=== PATIENT | female | born 1960 | race African-American/Black ===

== ENCOUNTER 2017-07-31 19:47 | Observation (INO) | payer BC, OTHER ==
[~2017-07-31] VITALS: Ht 165.1 cm; Wt 104.2 kg
[~2017-07-31 19:47] MED LIST: CANA300T PO; CARA1TAB6 PO; CHOL100025 CHEW; CYAN100025 SL; DULA0.5I SQ; GEMF600T PO; INSU1INJ14 SQ; MELO7.5T27 PO; MILK175T; MULT1TAB46; NUCY75TA5 PO; PANT40TA3 PO; PREG300 PO; TOPI25 PO; TRAM50 PO; VENTAER INH; [UNRECOGNIZED DRUG - CODE]; [UNRECOGNIZED DRUG - CODE]
[2017-07-31 20:49] VITALS: BP 135/94; PULSE 110; RESP 20; TEMP 98.2; O2SAT 100
[2017-07-31] MEDS ORDERED: SODIUM CHLOR 0.9% 1000 ML INJ 1,000 ML IV SCH (21:07)
[2017-07-31 21:13] VITALS: BP 160/82; PULSE 106; RESP 18; O2SAT 98
[2017-07-31] MEDS ORDERED: PANTOPRAZOLE SODIUM 40 MG VIAL IVP ONE (21:15)
[2017-07-31] MEDS ORDERED: MORPHINE SULFATE 4 MG/ML INJ IV PUSH ONE ×2 (21:15→23:30)
[2017-07-31] MEDS ORDERED: METOCLOPRAMIDE HCL 10 MG/2 ML VIAL IV PUSH ONE (21:15)
--- NOTE | 2017-07-31 21:15 | PD ---
HPI Chief Complaint: Abdominal Pain Time Seen by Provider: 21:06 Travel History International Travel<30 days: No Contact w/Intl Traveler<30days: No Traveled to known affect area: No History of Present Illness HPI 57-year-old female presents to the emergency department by private transportation the care of her spouse for evaluation of severe abdominal pain since 4 PM today. Patient has history of chronic abdominal pain secondary to chronic adhesions since multiple previous surgeries in the past including adhesion lysis hysterectomy cholecystectomy and appendectomy. Patient also has history of diabetes but denies known history of gastroparesis. Patient's had no fever chills has had nausea without vomiting and has had 3 bowel movements with flatus since onset of pain. Patient initially felt her pain was related to climbing stairs and she states due to her adhesions abdominal wall pain and chronic pain syndrome when she climbs stairs up with increased load on her abdominal wall she typically uses an elevator but today the elevator was broken. Patient did take her pain medication prior to arrival to the emergency department without pain relief. Patient states it has been approximately 4 years since she has had pain this severe. Patient denies dysuria frequency urgency has had no chest pain no shortness of breath and no recent respiratory illness. Patient denies any trauma or injury. Patient is unable to identify specific exacerbating or alleviating factors. PFSH Past Medical History Narrative Medical Asthma diabetes hypertension dyslipidemia morbid obesity chronic pain syndrome hysterectomy appendectomy cholecystectomy lysis of adhesions; no tobacco use no alcohol use; nursing notes reviewed Asthma: Yes (BRONCHITIS) Blood Disorders: No Cancer: No Cardiovascular Problems: Yes (HTN) High Cholesterol: Yes Diabetes: Yes Patient Takes Glucophage: No Diminished Hearing: No Endocrine: Yes Gastrointestinal Disorders: Yes (ULCER) Genitourinary: No Hypertension: Yes Immune Disorder: No Musculoskeletal: No Neurologic: No Psychiatric: No Reproductive: No Immunizations Current: Yes ?: Not Menopausal: Yes Past Surgical History Abdominal Surgery: Yes (reconstructive/SCAR TISSUE REMOVED) Appendectomy: Yes Cholecystectomy: Yes Hysterectomy: Yes Pacemaker: No Other Surgery: Yes (JAKOB, APPE, HYSTERECTOMY) Social History Alcohol Use: No Tobacco Use: No Substance Use: No (FAMILY USE OF MARIJUANA) Allergies-Medications (Allergen,Severity, Reaction): Coded Allergies: No Known Allergies (Verified Adverse Reaction, Unknown, 02/23/17) Reported Meds & Prescriptions Reported Meds & Active Scripts Active Reported Ultram (Tramadol HCl) 50 Mg Tab 50 Mg PO Q6H PRN Topamax (Topiramate) 25 Mg Tab 25 Mg PO BID Timolol Maleate 1 Pow Pow Nucynta (Tapentadol) 75 Mg Tab 75 Mg PO Q4H PRN Pantoprazole (Pantoprazole Sodium) 40 Mg Tab 40 Mg PO DAILY Multi Vitamin Daily (Multiple Vitamin) 1 Tab Tab Milk Thistle Extract 175 Mg Tab Lyrica (Pregabalin) 300 Mg Cap 300 Mg PO BID Tresiba Flextouch Pen Inj (Insulin Degludec Inj) 300 unit/3 ML Pen 1 Units SQ TID Gemfibrozil 600 Mg Tab 600 Mg PO BIDAC Take 30 minutes prior to breakfast and dinner. Fish Oil Burp-Less 1200 mg ([place]-3 Fatty Acids) 1 Cap Cap Trulicity Inj (Dulaglutide Inj) 1.5 Mg/0.5 Ml Pen 1.5 Mg SQ Q7D B-12 (Cyanocobalamin) 1,000 Mcg Subl 1,000 Mcg SL DAILY Vitamin D3 (Cholecalciferol) 1,000 Unit Chew 1,000 Units CHEW DAILY Carafate (Sucralfate) 1 Gm Tab 1 Gm PO TID On empty stomach Invokana (Canagliflozin) 300 Mg Tab 300 Mg PO DAILY Take before 1st meal of day. Ventolin Hfa 18 GM Inh (Albuterol Sulfate) 90 Mcg/Act Aer 2 Puff INH Q4H PRN Meloxicam 7.5 Mg Tab 7.5 Mg PO DAILY Review of Systems Except as stated in HPI: all other systems reviewed are Neg General / Constitutional: No: Fever, Chills HENT: No: Congestion Cardiovascular: No: Chest Pain or Discomfort Respiratory: No: Shortness of Breath Gastrointestinal: Positive: Nausea, Abdominal Pain, No: Vomiting, Diarrhea, Hematemesis, Hematochezia Genitourinary: No: Dysuria, Flank Pain Musculoskeletal: No: Myalgias, Arthralgias Skin: No Rash Neurologic: No: Weakness Psychiatric: No: Anxiety Hematologic/Lymphatic: No: Lymph Node Enlargement Physical Exam Narrative GENERAL: Well-developed well-nourished female in obvious discomfort no respiratory distress SKIN: Warm and dry. HEAD: Normocephalic. EYES: No scleral icterus. No injection or drainage. NECK: Supple, trachea midline. No JVD or lymphadenopathy. CARDIOVASCULAR: Regular rate and rhythm without murmurs, gallops, or rubs. RESPIRATORY: Breath sounds equal bilaterally. No accessory muscle use. GASTROINTESTINAL: Abdomen soft, diffusely tender firm to palpation, mildly distended. MUSCULOSKELETAL: No cyanosis, or edema. BACK: Nontender without obvious deformity. No CVA tenderness. Data Data Last Documented VS Vital Signs Date Time Temp Pulse Resp B/P (MAP) Pulse Ox O2 Delivery O2 Flow Rate FiO2 07/31/17 23:35 108 16 156/77 (103) 99 Room Air 07/31/17 20:49 98.2 Orders Orders Complete Blood Count With Diff (07/31/17 21:07) Comprehensive Metabolic Panel (07/31/17 21:07) Lipase (07/31/17 21:07) Lactic Acid (07/31/17 21:07) Urinalysis - C+S If Indicated (07/31/17 21:07) Ct Abd/Pel W Iv Contrast(Rout) (07/31/17 21:07) Iv Access Insert/Monitor (07/31/17 21:07) Ecg Monitoring (07/31/17 21:07) Oximetry (07/31/17 21:07) Pantoprazole Inj (Protonix Inj) (07/31/17 21:15) Sodium Chlor 0.9% 1000 Ml Inj (Ns 1000 M (07/31/17 21:07) Sodium Chloride 0.9% Flush (Ns Flush) (07/31/17 21:15) Electrocardiogram (07/31/17 21:07) Chest, Single Ap (07/31/17 21:07) Metoclopramide Inj (Reglan Inj) (07/31/17 21:15) Morphine Inj (Morphine Inj) (07/31/17 21:15) Troponin I (07/31/17 21:34) Iohexol 350 Inj (Omnipaque 350 Inj) (07/31/17 23:07) Morphine Inj (Morphine Inj) (07/31/17 23:30) Place In Observation (08/01/17 ) Vital Signs (Adult) Q4H (08/01/17 00:23) Activity Oob Ad Giovanna (08/01/17 00:23) Bedside Glucose BUD.CSUGAR (08/01/17 00:23) Intake + Output BUD.QSHIFT (08/01/17 00:23) Diet Npo (08/01/17 Breakfast) Sodium Chlor 0.9% 1000 Ml Inj (Ns 1000 M (08/01/17 00:23) Sodium Chloride 0.9% Flush (Ns Flush) (08/01/17 00:30) Sodium Chloride 0.9% Flush (Ns Flush) (08/01/17 09:00) Metoclopramide Inj (Reglan Inj) (08/01/17 00:30) Comprehensive Metabolic Panel (08/02/17 06:00) Complete Blood Count With Diff (08/02/17 06:00) Scd Bilateral/Knee High BUD.BID (08/01/17 00:23) Acetaminophen (Tylenol) (08/01/17 00:30) Acetamin-Hydrocod 325-5 Mg ([place] 5-325 (08/01/17 00:30) Acetamin-Hydrocod 325-7.5 Mg ([place] 7.5 (08/01/17 00:30) Morphine Inj (Morphine Inj) (08/01/17 00:30) Morphine Inj (Morphine Inj) (08/01/17 00:30) Naloxone Inj (Narcan Inj) (08/01/17 00:30) Docusate Sodium-Senna (Margy-Colace) (08/01/17 09:00) Magnesium Hydroxide Liq (Milk Of Magnesi (08/01/17 00:30) Sennosides (Senokot) (08/01/17 00:30) Bisacodyl Supp (Dulcolax Supp) (08/01/17 00:30) Lactulose Liq (Lactulose Liq) (08/01/17 00:30) Labs Laboratory Tests Test 07/31/17 21:15 07/31/17 21:20 07/31/17 23:22 White Blood Count 13.0 TH/MM3 Red Blood Count 5.77 MIL/MM3 Hemoglobin 11.9 GM/DL Hematocrit 36.9 % Mean Corpuscular Volume 64.0 FL Mean Corpuscular Hemoglobin 20.6 PG Mean Corpuscular Hemoglobin Concent 32.2 % Red Cell Distribution Width 27.3 % Platelet Count 234 TH/MM3 Mean Platelet Volume 8.6 FL Neutrophils (%) (Auto) 76.4 % Lymphocytes (%) (Auto) 17.4 % Monocytes (%) (Auto) 4.4 % Eosinophils (%) (Auto) 1.1 % Basophils (%) (Auto) 0.7 % Neutrophils # (Auto) 9.9 TH/MM3 Lymphocytes # (Auto) 2.3 TH/MM3 Monocytes # (Auto) 0.6 TH/MM3 Eosinophils # (Auto) 0.1 TH/MM3 Basophils # (Auto) 0.1 TH/MM3 CBC Comment AUTO DIFF Differential Total Cells Counted 100 Neutrophils % (Manual) 78 % Lymphocytes % 19 % Monocytes % 2 % Eosinophils % 1 % Neutrophils # (Manual) 10.1 TH/MM3 Nucleated Red Blood Cells 6 /100 WBC Differential Comment FINAL DIFF MANUAL Platelet Estimate NORMAL Platelet Morphology Comment NORMAL Polychromasia 2.7 % Target Cells 2+ Stomatocytes 1+ Blood Urea Nitrogen 24 MG/DL Creatinine 0.87 MG/DL Random Glucose 188 MG/DL Total Protein 9.1 GM/DL Albumin 4.4 GM/DL Calcium Level 9.6 MG/DL Alkaline Phosphatase 102 U/L Aspartate Amino Transf (AST/SGOT) 22 U/L Alanine Aminotransferase (ALT/SGPT) 15 U/L Total Bilirubin 1.0 MG/DL Sodium Level 138 MEQ/L Potassium Level 4.3 MEQ/L Chloride Level 107 MEQ/L Carbon Dioxide Level 20.2 MEQ/L Anion Gap 11 MEQ/L Estimat Glomerular Filtration Rate 82 ML/MIN Lipase 263 U/L Lactic Acid Level 1.4 mmol/L Urine Color YELLOW Urine Turbidity CLEAR Urine pH 5.0 Urine Specific [place] 1.036 Urine Protein NEG mg/dL Urine Glucose (UA) >=500 mg/dL Urine Ketones TRACE mg/dL Urine Occult Blood NEG Urine Nitrite NEG Urine Bilirubin NEG Urine Urobilinogen LESS THAN 2 mg/dL Urine Leukocyte Esterase NEG Urine RBC 1 /hpf Urine WBC 1 /hpf Urine Squamous Epithelial Cells <1 /hpf Urine Granular Casts 1 /lpf Microscopic Urinalysis Comment CULT NOT INDICATED MDM Medical Decision Making Medical Screen Exam Complete: Yes Emergency Medical Condition: Yes Medical Record Reviewed: Yes Interpretation(s) EKG: Sinus tachycardia rate 110 age-indeterminate QS inferiorly this is noted on previous EKG from 2016 anterior lateral infarction changes nothing acute no ST elevation age-indeterminate Last Impressions Chest X-Ray 07/31/172106 Signed Impressions: CONCLUSION: 1. No acute cardiopulmonary disease. Abdomen/Pelvis CT 07/31/172106 Signed Impressions: CONCLUSION: 1. Inflammation of the anterior abdominal wall possibly related to surgery. Mi ld asymmetry in the loops of small bowel with some distended loops proximally a nd decompressed loops distally. No transition zone is identified. 2. Cholecystectomy clips CBC & BMP Diagram 07/31/17 21:15 Total Protein 9.1 H, Albumin 4.4, Calcium Level 9.6, Alkaline Phosphatase 102, Aspartate Amino Transf (AST/SGOT) 22, Alanine Aminotransferase (ALT/SGPT) 15, Total Bilirubin 1.0 Vital Signs Date Time Temp Pulse Resp B/P (MAP) Pulse Ox O2 Delivery O2 Flow Rate FiO2 07/31/17 23:35 108 16 156/77 (103) 99 Room Air 07/31/17 21:24 98 Room Air 07/31/17 21:13 106 18 160/82 (108) 98 Room Air 07/31/17 20:49 98.2 110 20 135/94 (108) 100 Differential Diagnosis Abdominal pain, bowel obstruction, perforated viscus, exacerbation chronic pain syndrome, gastroparesis Narrative Course Patient placed on monitoring specialist IV access obtained specimens collected and sent for resulting patient administered morphine sulfate 4 mg IV and Reglan 10 mg IV with maintenance IV fluids 125 cc/h Patient aware of labs CT abdomen pelvis pending CT abdomen pelvis identified per reading radiologist to have areas of proximal small bowel distention mild with decompressed distal small bowel patient continues to have abdominal tenderness to palpation and mild distention with history of recurrent adhesions requiring adhesiolysis concern for early partial small bowel obstruction discussed with on-call medicine for observation admission n.p.o. IV fluids and pain manner patient's pain continues and patient remains mildly tachycardic after 8 mg of morphine. [facility] physician agreeable to observation admission. Physician Communication Physician Communication discussed with Dr Mayes --OBS Dr Michel Diagnosis Primary Impression: Abdominal pain Additional Impression: Small bowel obstruction, partial Admitting Information Admitting Physician Requests: Observation Karen Lai MD Jul 31, 2017 21:15
[2017-07-31 21:24] VITALS: O2SAT 98
--- NOTE | 2017-07-31 21:43 | RADRPT ---
EXAM DATE: 07/31/2017 9:33 PM EDT AGE/SEX: 57 years / Female INDICATIONS: Vomiting and upper gastric pain. CLINICAL DATA: This is the patient's initial encounter. Patient reports that signs and symptoms have been present for 1 day and indicates a pain score of 7/10. MEDICAL/SURGICAL HISTORY: . Diabetes, Hypertension Appendectomy. Cholecystectomy. COMPARISON: No prior exams available for comparison. FINDINGS: A single AP view of the chest demonstrates the lungs to be symmetrically aerated without evidence of mass, infiltrate or effusion. The cardiomediastinal contours are unremarkable. Osseous structures a re intact. CONCLUSION: 1. No acute cardiopulmonary disease. Electronically signed by: Zeyad Boyd MD 07/31/2017 9:41 PM EDT
[2017-07-31 21:55] LABS: AUTOMATED NEUTROPHIL # 9.9 TH/MM3 (1.8-7.7); BASOPHIL # 0.1 TH/MM3 (0-0.2); BASOPHIL % 0.7 % (0.0-2.0); EOSINOPHIL # 0.1 TH/MM3 (0-0.4); EOSINOPHIL % 1.1 % (0.0-4.0); HEMATOCRIT 36.9 % (35.0-46.0); HEMOGLOBIN 11.9 GM/DL (11.6-15.3); LYMPH % 17.4 % (9.0-44.0); LYMPHOCYTE # 2.3 TH/MM3 (1.0-4.8); MEAN CORPUSCULAR HEMOGLOBIN 20.6 PG (27.0-34.0); MEAN CORPUSCULAR HGB CONC 32.2 % (32.0-36.0); MEAN PLATELET VOLUME 8.6 FL (7.0-11.0); MONO % 4.4 % (0.0-8.0); MONOCYTE # 0.6 TH/MM3 (0-0.9); NEUT % 76.4 % (16.0-70.0); PLATELET COUNT 234 TH/MM3 (150-450); RED BLOOD COUNT 5.77 MIL/MM3 (4.00-5.30); RED CELL DISTRIBUTION WIDTH 27.3 % (11.6-17.2)
[2017-07-31 22:12] LABS: ALKALINE PHOSPHATASE 102 U/L (45-117); TOTAL PROTEIN 9.1 GM/DL (6.4-8.2)
[2017-07-31 22:22] LABS: ALBUMIN 4.4 GM/DL (3.4-5.0); ALT (GPT) 15 U/L (10-53); AST (GOT) 22 U/L (15-37); BICARBONATE 20.2 MEQ/L (21.0-32.0); BLOOD UREA NITROGEN 24 MG/DL (7-18); CALCIUM 9.6 MG/DL (8.5-10.1); CHLORIDE 107 MEQ/L (98-107); CREATININE 0.87 MG/DL (0.50-1.00); GLOMERULAR FILTRATION RATE 82 ML/MIN (>89); GLUCOSE,RANDOM 188 MG/DL (74-106); SODIUM (NA) 138 MEQ/L (136-145)
[2017-07-31 22:44] LABS: CORRECTED NUCLEATED RBC 6 /100 WBC (0-0); LYMPHOCYTES 19 % (9-44); MONOCYTES 2 % (0-8); NEUTROPHIL # MANUAL DIFF 10.1 TH/MM3 (1.8-7.7); NUCLEATED RED BLOOD CELL 6 (0-0); POLYS (SEG NEUTROPHILS) 78 % (16-70)
[2017-07-31 22:46] LABS: POLYCHROMASIA 2.7 % (0.0-1.9); TARGET CELLS 2+ (NORMAL)
[2017-07-31 22:47] LABS: STOMATOCYTES 1+ (NORMAL)
[2017-07-31] MEDS ORDERED: IOHEXOL 350 MG/ML 10 ML VIAL (for RAD DIAG) IVCONTRAST ONE (23:07)
--- NOTE | 2017-07-31 23:30 | RADRPT ---
EXAM DATE: 07/31/2017 11:22 PM EDT AGE/SEX: 57 years / Female INDICATIONS: Abdomen pain. CLINICAL DATA: This is the patient's initial encounter. Patient reports that signs and symptoms have been present for 1 day and indicates a pain score of 5/10. MEDICAL/SURGICAL HISTORY: Hypertension. Ulcers Appendectomy. Cholecystectomy. Hysterectomy. ORAL CONTRAST: No oral contrast ingested. RADIATION DOSE: 19.99 CTDI (mGy) [place] [facility] [place]/18/[place]. . TECHNIQUE: Multiple contiguous axial images were obtained through the abdomen and pelvis following b olus infusion of 75 ml Omnipaque 350 (iohexol) nonionic water-soluble contrast as a single exam dos e. No oral contrast ingested. Using automated exposure control and adjustment of the mA and/or kV ac cording to patient size, radiation dose was kept as low as reasonably achievable to obtain optimal di agnostic quality images. DICOM format image data is available electronically for review and comparis on. FINDINGS: Lower Lungs: The visualized lower lungs are clear. Liver: The liver has a homogeneous density without space-occupying lesion. There is no dilation of th e biliary tree. Cholecystectomy clips Spleen: The spleen is enlarged, unchanged. Pancreas: Unremarkable without mass or calcification. Kidneys: Normal in size and shape. No evidence of mass or hydronephrosis except cyst lower pole left kidney. Adrenal Glands: Unremarkable. Aorta: The aorta and proximal iliac vessels are grossly unremarkable without aneurysmal dilation. Bowel/Mesentery: The distal loops of small bowel are quite decompressed whereas the proximal small b owel bowel loops have minimal fluid and at times more stool type density. The cecum and sigmoid colon have a normal configuration. Abdominal Wall: There is low-grade inflammation along the anterior abdominal wall likely related to previous surgery.. Retroperitoneum: No evidence of adenopathy in the retrocrural, para-aortic, or deep pelvic regions. Bladder: Contours are smooth. Reproductive Organs: No abnormal masses or calcifications seen. Inguinal: The inguinal region is unremarkable without evidence of adenopathy. Bony Structures: Unremarkable. CONCLUSION: 1. Inflammation of the anterior abdominal wall possibly related to surgery. Mild asymmetry in the lo ops of small bowel with some distended loops proximally and decompressed loops distally. No transitio n zone is identified. 2. Cholecystectomy clips Electronically signed by: Reece Elaine MD 07/31/2017 11:29 PM EDT
[2017-07-31 23:35] VITALS: BP 156/77; PULSE 108; RESP 16; O2SAT 99
[2017-07-31 23:35] LABS: BILIRUBIN, URINE NEG (NEG); BLOOD, URINE NEG (NEG); GLUCOSE,URINE >=500 mg/dL (NEG); KETONE, URINE TRACE mg/dL (NEG); NITRITE,URINE NEG (NEG); SQUAMOUS EPITHELIAL CELL URINE <1 /hpf (0-5); URINE COLOR YELLOW (YELLW/STRAW); URINE LEUKOCYTE ESTERASE NEG (NEG)
[2017-08-01] VITALS (9 sets, daily range): BP systolic 114–142; BP diastolic 60–99; PULSE 86–103; RESP 16–18; TEMP 98.2–99; O2SAT 93–96
[2017-08-01] MEDS ORDERED: IOHEXOL 350 MG/ML 10 ML VIAL (for RAD DIAG) IVCONTRAST ONE (00:27)
[2017-08-01] MEDS ORDERED: DIATRIZOATE MEGLUM/DIATRIZOATE SOD 120 ML BTL (for RAD DIAG) PO ONE (00:27)
[2017-08-01] MEDS ORDERED: LACTULOSE SYRUP 20 GM/30 ML CUP PO PRN (00:30)
[2017-08-01] MEDS ORDERED: SENNOSIDES 8.6 MG TAB PO PRN (00:30)
[2017-08-01] MEDS ORDERED: DEXTROSE 50% IN WATER 50 ML VIAL(D50) IV PUSH PRN (00:30)
[2017-08-01] MEDS ORDERED: BISACODYL 10 MG SUPP RECTAL PRN (00:30)
[2017-08-01] MEDS ORDERED: NALOXONE HCL 0.4 MG/ML AMP IV PUSH PRN (00:30)
[2017-08-01] MEDS ORDERED: METOCLOPRAMIDE HCL 10 MG/2 ML VIAL IV PUSH PRN (00:30)
[2017-08-01] MEDS ORDERED: ACETAMINOPHEN 325 MG TAB PO PRN (00:30)
[2017-08-01] MEDS ORDERED: ACETAMINOPHEN/HYDROcodone 325 MG/5 MG TAB PO PRN (00:30)
[2017-08-01] MEDS ORDERED: SODIUM CHLORIDE 0.9% FLUSH 10 ML FLUSH IV FLUSH PRN (00:30)
[2017-08-01] MEDS ORDERED: MAGNESIUM HYDROXIDE SUSP 30 ML CUP PO PRN (00:30)
[2017-08-01] MEDS ORDERED: GLUCAGON 1 MG/ML VIAL OTHER PRN (00:30)
[2017-08-01] MEDS ORDERED: MORPHINE SULFATE 4 MG/ML INJ IV PRN (00:45)
[2017-08-01] MEDS: SODIUM CHLOR 0.9% 1000 ML INJ 1,000 ML IV SCH ×2 (00:48→11:00)
[2017-08-01] MEDS: MORPHINE SULFATE 4 MG/ML INJ IV PRN ×4 (03:23→20:12)
[2017-08-01] MEDS: SODIUM CHLORIDE 0.9% FLUSH 10 ML FLUSH IV FLUSH PRN (03:23)
[2017-08-01] MEDS: INSULIN ASPART SUPPLEMENTAL SCALE SQ SCH ×4 (08:00→20:19)
[2017-08-01] MEDS: DOCUSATE SODIUM 50 MG/SENNA 8.6 MG TAB PO SCH ×2 (09:00→20:11)
[2017-08-01] MEDS: SODIUM CHLORIDE 0.9% FLUSH 10 ML FLUSH IV FLUSH SCH ×2 (09:00→20:11)
--- NOTE | 2017-08-01 09:34 | HHI.HP ---
HPI Service [facility] Hospitalists Primary Care Physician Michelle Leyva MD Admission Diagnosis recurrent intractable abdominal pain; early partial sbo Chief Complaint: abd pain Travel History International Travel<30 Days: No Contact w/Intl Traveler <30 Da: No Traveled to Known Affected Are: No History of Present Illness 57-year-old female patient with past medical history which includes diabetes, asthma, hypertension, hyperlipidemia, morbid obesity, chronic pain syndrome. Patient has also had abdominal surgery which includes hysterectomy, appendectomy , cholecystectomy and lysis of adhesions. Patient presented to the emergency department for evaluation of severe abdominal pain since 4 PM today. Patient has history of chronic abdominal pain secondary to chronic adhesions from her multiple abdominal surgeries. Patient's has had nausea without vomiting. Patient initially felt her pain was related to climbing stairs and she states due to her adhesions abdominal wall pain and chronic pain syndrome when she climbs stairs up with increased load on her abdominal wall she typically uses an elevator but today the elevator was broken. Patient did take her pain medication prior to arrival to the emergency department without pain relief. Patient states it has been approximately 4 years since she has had pain this severe. Patient denies flatus today. Patient denies dysuria, urinary frequency , urinary urgency, chest pain, shortness of breath and trauma or injury. Review of Systems Constitutional: DENIES: Fever, Chills, Dizziness Eyes: DENIES: Blurred vision, Diplopia, Photosensitivity Respiratory: DENIES: Cough, Sputum production, Shortness of breath Cardiovascular: DENIES: Chest pain, Palpitations, Dyspnea on Exertion Gastrointestinal: COMPLAINS OF: Abdominal pain, Nausea, DENIES: Constipation, Vomiting Neurologic: DENIES: Abnormal gait, Headache, Localized weakness Psychiatric: DENIES: Anxiety, Confusion, Depression Past Family Social History Past Medical History Asthma diabetes hypertension dyslipidemia morbid obesity chronic pain syndrome hysterectomy appendectomy cholecystectomy lysis of adhesions; no tobacco use no alcohol use; nursing notes reviewed Past Surgical History Cholecystectomy, appendectomy, hysterectomy, lysis of adhesions Reported Medications Ultram (Tramadol HCl) 50 Mg Tab 50 Mg PO Q6H PRN Topamax (Topiramate) 25 Mg Tab 25 Mg PO BID Timolol Maleate 1 Pow Pow Nucynta (Tapentadol) 75 Mg Tab 75 Mg PO Q4H PRN Pantoprazole (Pantoprazole Sodium) 40 Mg Tab 40 Mg PO DAILY Multi Vitamin Daily (Multiple Vitamin) 1 Tab Tab Milk Thistle Extract 175 Mg Tab Lyrica (Pregabalin) 300 Mg Cap 300 Mg PO BID Tresiba Flextouch Pen Inj (Insulin Degludec Inj) 300 unit/3 ML Pen 1 Units SQ TID Gemfibrozil 600 Mg Tab 600 Mg PO BIDAC Take 30 minutes prior to breakfast and dinner. Fish Oil Burp-Less 1200 mg ([place]-3 Fatty Acids) 1 Cap Cap Trulicity Inj (Dulaglutide Inj) 1.5 Mg/0.5 Ml Pen 1.5 Mg SQ Q7D B-12 (Cyanocobalamin) 1,000 Mcg Subl 1,000 Mcg SL DAILY Vitamin D3 (Cholecalciferol) 1,000 Unit Chew 1,000 Units CHEW DAILY Carafate (Sucralfate) 1 Gm Tab 1 Gm PO TID On empty stomach Invokana (Canagliflozin) 300 Mg Tab 300 Mg PO DAILY Take before 1st meal of day. Ventolin Hfa 18 GM Inh (Albuterol Sulfate) 90 Mcg/Act Aer 2 Puff INH Q4H PRN Meloxicam 7.5 Mg Tab 7.5 Mg PO DAILY Allergies: Coded Allergies: No Known Allergies (Verified Allergy, Unknown, 08/01/17) Family History reviewed and noncontributory Social History Denies EtOH use or tobacco use Physical Exam Vital Signs Vital Signs Date Time Temp Pulse Resp B/P (MAP) Pulse Ox O2 Delivery O2 Flow Rate FiO2 08/01/17 09:19 18 08/01/17 07:19 99.0 97 16 139/99 (112) 95 08/01/17 02:57 98.4 100 17 140/77 (98) 93 08/01/17 01:30 98.7 103 17 142/81 (101) 96 08/01/17 01:19 07/31/17 23:35 108 16 156/77 (103) 99 Room Air 07/31/17 21:24 98 Room Air 07/31/17 21:13 106 18 160/82 (108) 98 Room Air 07/31/17 20:49 98.2 110 20 135/94 (108) 100 Physical Exam GENERAL: This is an obese, well-developed patient, in no apparent distress. SKIN: multiple scars on abdomen HEAD: Atraumatic. Normocephalic. No temporal or scalp tenderness. EYES: Extraocular motions intact. No scleral icterus. No injection or drainage. CARDIOVASCULAR: Regular rate and rhythm RESPIRATORY: Clear to auscultation. Breath sounds equal bilaterally.absent bowel sounds. MUSCULOSKELETAL: Extremities without clubbing, cyanosis, or edema. No joint tenderness, effusion, or edema noted. No calf tenderness. Negative Homans sign bilaterally. NEUROLOGICAL: Awake and alert. No focal deficits. Motor and sensory grossly within normal limits. Five out of 5 muscle strength in all muscle groups. Normal speech. Laboratory Laboratory Tests Test 07/31/17 21:15 07/31/17 21:20 07/31/17 23:22 White Blood Count 13.0 Red Blood Count 5.77 Hemoglobin 11.9 Hematocrit 36.9 Mean Corpuscular Volume 64.0 Mean Corpuscular Hemoglobin 20.6 Mean Corpuscular Hemoglobin Concent 32.2 Red Cell Distribution Width 27.3 Platelet Count 234 Mean Platelet Volume 8.6 Neutrophils (%) (Auto) 76.4 Lymphocytes (%) (Auto) 17.4 Monocytes (%) (Auto) 4.4 Eosinophils (%) (Auto) 1.1 Basophils (%) (Auto) 0.7 Neutrophils # (Auto) 9.9 Lymphocytes # (Auto) 2.3 Monocytes # (Auto) 0.6 Eosinophils # (Auto) 0.1 Basophils # (Auto) 0.1 CBC Comment AUTO DIFF Differential Total Cells Counted 100 Neutrophils % (Manual) 78 Lymphocytes % 19 Monocytes % 2 Eosinophils % 1 Neutrophils # (Manual) 10.1 Nucleated Red Blood Cells 6 Differential Comment FINAL DIFF MANUAL Platelet Estimate NORMAL Platelet Morphology Comment NORMAL Polychromasia 2.7 Target Cells 2+ Stomatocytes 1+ Blood Urea Nitrogen 24 Creatinine 0.87 Random Glucose 188 Total Protein 9.1 Albumin 4.4 Calcium Level 9.6 Alkaline Phosphatase 102 Aspartate Amino Transf (AST/SGOT) 22 Alanine Aminotransferase (ALT/SGPT) 15 Total Bilirubin 1.0 Sodium Level 138 Potassium Level 4.3 Chloride Level 107 Carbon Dioxide Level 20.2 Anion Gap 11 Estimat Glomerular Filtration Rate 82 Troponin I LESS THAN 0.02 Lipase 263 Lactic Acid Level 1.4 Urine Color YELLOW Urine Turbidity CLEAR Urine pH 5.0 Urine Specific [place] 1.036 Urine Protein NEG Urine Glucose (UA) >=500 Urine Ketones TRACE Urine Occult Blood NEG Urine Nitrite NEG Urine Bilirubin NEG Urine Urobilinogen LESS THAN 2 Urine Leukocyte Esterase NEG Urine RBC 1 Urine WBC 1 Urine Squamous Epithelial Cells <1 Urine Granular Casts 1 Microscopic Urinalysis Comment CULT NOT INDICATED Result Diagram: 07/31/17211407/31/172114 Imaging Last Impressions Chest X-Ray 07/31/172106 Signed Impressions: CONCLUSION: 1. No acute cardiopulmonary disease. Abdomen/Pelvis CT 07/31/172106 Signed Impressions: CONCLUSION: 1. Inflammation of the anterior abdominal wall possibly related to surgery. Mi ld asymmetry in the loops of small bowel with some distended loops proximally a nd decompressed loops distally. No transition zone is identified. 2. Cholecystectomy clips Caprini VTE Risk Assessment Caprini VTE Risk Assessment: No/Low Risk (score <= 1) Caprini Risk Assessment Model Point Value = 1 Point Value = 2 Point Value = 3 Point Value = 5 Age 41-60 Minor surgery BMI > 25 kg/m2 Swollen legs Varicose veins or History of unexplained or recurrent spontaneous Oral contraceptives or hormone replacement Sepsis (< 1 month) Serious lung disease, including pneumonia (< 1 month) Abnormal pulmonary function Acute myocardial infarction Congestive heart failure (< 1 month) History of inflammatory bowel disease Medical patient at bed rest Age 61-74 Arthroscopic surgery Major open surgery (> 45 min) Laparoscopic surgery (> 45 min) Malignancy Confined to bed (> 72 hours) Immobilizing plaster cast Central venous access Age >= 75 History of VTE Family history of VTE Factor V Leiden Prothrombin [id number] Lupus anticoagulant Anticardiolipin antibodies Elevated serum homocysteine Heparin-induced thrombocytopenia Other congenital or acquired thrombophilia Stroke (< 1 month) Elective arthroplasty Hip, pelvis, or leg fracture Acute spinal cord injury (< 1 month) Prophylaxis Regimen Total Risk Factor Score Risk Level Prophylaxis Regimen 0-1 Low Early ambulation 2 Moderate Order ONE of the following: *Sequential Compression Device (SCD) *Heparin 5000 units SQ BID 3-4 Higher Order ONE of the following medications: *Heparin 5000 units SQ TID *Enoxaparin/Lovenox 40 mg SQ daily (WT < 150 kg, CrCl > 30 mL/min) *Enoxaparin/Lovenox 30 mg SQ daily (WT < 150 kg, CrCl > 10-29 mL/min) *Enoxaparin/Lovenox 30 mg SQ BID (WT < 150 kg, CrCl > 30 mL/min) AND/OR *Sequential Compression Device (SCD) 5 or more Highest Order ONE of the following medications: *Heparin 5000 units SQ TID (Preferred with Epidurals) *Enoxaparin/Lovenox 40 mg SQ daily (WT < 150 kg, CrCl > 30 mL/min) *Enoxaparin/Lovenox 30 mg SQ daily (WT < 150 kg, CrCl > 10-29 mL/min) *Enoxaparin/Lovenox 30 mg SQ BID (WT < 150 kg, CrCl > 30 mL/min) AND *Sequential Compression Device (SCD) Assessment and Plan Problem List: (1) Abdominal pain ICD Codes: R10.9 - Abdominal pain Status: Acute Plan: Abdominal pain so for likely secondary to ileus versus partial small bowel obstruction related to adhesions Patient has also had abdominal surgery which includes hysterectomy, appendectomy , cholecystectomy and lysis of adhesions. Patient presented to the emergency department for evaluation of severe abdominal pain since 4 PM 07/31/17. Patient has history of chronic abdominal pain secondary to chronic adhesions from her multiple abdominal surgeries. Patient's has had nausea without vomiting and has had 3 bowel movements with flatus since onset of pain. Patient states it has been approximately 4 years since she has had pain this severe. CT abdomen pelvis reviewed and reveals inflammation of the anterior abdominal wall possibly related to surgery. Mild asymmetry in the loops of small bowel with some distended loops proximal tolerating well and decompressed loops distally. No transition point is identified. Cholecystectomy clips. NPO IVF for hydration Repeat KUB in AM (2) Diabetes mellitus ICD Codes: E11.9 - Type 2 diabetes mellitus without complications Plan: Accu-Cheks before meals at bedtime with sliding scale insulin coverage (3) HTN (hypertension) ICD Codes: I10 - Essential (primary) hypertension Plan: Patient takes amlodipine at home Patient NPO will hold PO medication monitor BP Vasotec as needed (4) Hyperlipidemia ICD Codes: E78.5 - Hyperlipidemia, unspecified Plan: PO medications on hold Assessment and Plan Patient examined. Assessment and plan formulated with Zulema RICO I agree with the above. Zulema Davis Aug 01, 2017 09:34 Elias Michel DO Aug 03, 2017 12:47
--- NOTE | 2017-08-01 13:56 | EKG ---
Date Performed: 07/31/2017 Time Performed: 21:21:05 PTAGE: 57 years EKG: SINUS TACHYCARDIA INFERIOR MYOCARDIAL INFARCTION ANTEROLATERAL MYOCARDIAL INFARCTION ABNORM AL ECG PREVIOUS TRACING : 06/19/2014 01.28 DOCTOR: Reece Lorenzana Interpretating Date/Time 08/01/2017 13:54:54
[2017-08-01] MEDS ORDERED: SUMA25TA2 PO (18:24)
[2017-08-01] MEDS ORDERED: TRAM50TA PO (18:24)
[2017-08-01] MEDS ORDERED: EMPA1TAB3 PO (18:24)
[2017-08-01] MEDS ORDERED: TIMO0.5S30 EACH EYE (18:24)
[2017-08-01] MEDS ORDERED: AMLO5TAB2 PO (18:24)
[2017-08-01] MEDS ORDERED: PANT20TA2 PO (18:24)
[2017-08-01] MEDS ORDERED: ENALAPRILAT 1.25 MG/ML VIAL IV PUSH PRN (18:30)
[2017-08-02] MEDS: SODIUM CHLORIDE 0.9% FLUSH 10 ML FLUSH IV FLUSH PRN (00:45)
[2017-08-02] MEDS: MORPHINE SULFATE 4 MG/ML INJ IV PRN ×2 (00:45→20:50)
[2017-08-02] MEDS: SODIUM CHLOR 0.9% 1000 ML INJ 1,000 ML IV SCH (00:47)
[2017-08-02 03:55] VITALS: BP 106/70; PULSE 98; RESP 17; TEMP 98.5; O2SAT 95
[2017-08-02 06:21] LABS: AUTOMATED NEUTROPHIL # 5.4 TH/MM3 (1.8-7.7); BASOPHIL % 0.6 % (0.0-2.0); EOSINOPHIL # 0.2 TH/MM3 (0-0.4); EOSINOPHIL % 1.9 % (0.0-4.0); HEMOGLOBIN 9.3 GM/DL (11.6-15.3); LYMPH % 27.1 % (9.0-44.0); LYMPHOCYTE # 2.2 TH/MM3 (1.0-4.8); MEAN CELL VOLUME 62.9 FL (80.0-100.0); MEAN CORPUSCULAR HEMOGLOBIN 20.9 PG (27.0-34.0); MEAN CORPUSCULAR HGB CONC 33.1 % (32.0-36.0); MEAN PLATELET VOLUME 8.6 FL (7.0-11.0); MONO % 5.1 % (0.0-8.0); MONOCYTE # 0.4 TH/MM3 (0-0.9); NEUT % 65.3 % (16.0-70.0); PLATELET COUNT 181 TH/MM3 (150-450); RED BLOOD COUNT 4.45 MIL/MM3 (4.00-5.30); RED CELL DISTRIBUTION WIDTH 26.6 % (11.6-17.2); WHITE BLOOD COUNT 8.2 TH/MM3 (4.0-11.0)
[2017-08-02 06:52] LABS: ALBUMIN 3.5 GM/DL (3.4-5.0); ALKALINE PHOSPHATASE 77 U/L (45-117); ALT (GPT) 10 U/L (10-53); AST (GOT) 4 U/L (15-37); BICARBONATE 24.3 MEQ/L (21.0-32.0); BLOOD UREA NITROGEN 18 MG/DL (7-18); CALCIUM 8.5 MG/DL (8.5-10.1); CHLORIDE 111 MEQ/L (98-107); GLOMERULAR FILTRATION RATE 155 ML/MIN (>89); GLUCOSE,RANDOM 100 MG/DL (74-106); SODIUM (NA) 146 MEQ/L (136-145); TOTAL BILIRUBIN ADULT 0.9 MG/DL (0.2-1.0); TOTAL PROTEIN 7.2 GM/DL (6.4-8.2)
[2017-08-02 07:12] VITALS: BP 111/59; PULSE 94; RESP 16; TEMP 97.9; O2SAT 93
[2017-08-02] MEDS: ACETAMINOPHEN/HYDROcodone 325 MG/7.5 MG TAB PO PRN (07:47)
[2017-08-02] MEDS: DOCUSATE SODIUM 50 MG/SENNA 8.6 MG TAB PO SCH ×3 (07:47→20:50)
[2017-08-02] MEDS: SODIUM CHLORIDE 0.9% FLUSH 10 ML FLUSH IV FLUSH SCH ×2 (07:48→20:49)
[2017-08-02] MEDS: TIMOLOL MALEATE 0.5% OPHT SOLN 5 ML BTL EACH EYE SCH (07:48)
[2017-08-02] MEDS: INSULIN ASPART SUPPLEMENTAL SCALE SQ SCH ×4 (07:52→20:54)
--- NOTE | 2017-08-02 09:22 | RADRPT ---
EXAM DATE: 08/02/2017 9:00 AM EDT AGE/SEX: 57 years / Female INDICATIONS: Right side abdomen pain. CLINICAL DATA: This is the patient's subsequent encounter. Patient reports that signs and symptoms h ave been present for 3 days and indicates a pain score of 5/10. MEDICAL/SURGICAL HISTORY: Hypertension. Diabetes mellitus type II. Asthma. Cholecystectomy. Appendectomy. Hysterectomy. scar tissue removal COMPARISON: [facility] – [place], [place] ABDOMEN & PELVIS W CONTRAST, 07/31/2017. . FINDINGS: The abdominal bowel gas pattern is normal. The spleen is enlarged measuring 21 cm in length. Linear calcifications or surgical material seen in the pelvis. There are also phleboliths in the pelvis. T he osseous structures are unremarkable. Clips are seen in the right upper quadrant. CONCLUSION: Splenomegaly. The bowel gas pattern is unremarkable. Electronically signed by: Juan Carlos Barahona MD 08/02/2017 9:21 AM EDT
[2017-08-02 09:24] LABS: BANDS 2 % (0-6); CORRECTED NUCLEATED RBC 3 /100 WBC (0-0); LYMPHOCYTES 23 % (9-44); METAMYELOCYTES 1 % (0-1); MONOCYTES 2 % (0-8); NEUTROPHIL # MANUAL DIFF 5.9 TH/MM3 (1.8-7.7); NUCLEATED RED BLOOD CELL 3 (0-0); POLYS (SEG NEUTROPHILS) 69 % (16-70)
[2017-08-02 09:31] LABS: SPHEROCYTES 1+ (NORMAL)
[2017-08-02 09:32] LABS: POLYCHROMASIA 3.2 % (0.0-1.9); TARGET CELLS 2+ (NORMAL)
[2017-08-02] MEDS ORDERED: SODIUM CHLOR 0.45% 1000 ML INJ 1,000 ML IV SCH (09:45)
[2017-08-02] MEDS ORDERED: POTASSIUM CHLOR 20 MEQ PREMIX 100 ML IV ONE (09:45)
[2017-08-02 11:07] LABS: % SATURATION IRON PROFILE 12.2 % (20-50); IRON (FE) 44 MCG/DL (50-170); TOTAL IRON BINDING CAPACITY 360 MCG/DL (250-450)
[2017-08-02 11:26] VITALS: BP 136/73; PULSE 91; RESP 16; TEMP 98.6; O2SAT 96
--- NOTE | 2017-08-02 11:40 | HHI.PR ---
Subjective Remarks Patient endorses positive flatus today reports medium sized BM last night continues to have generalized abd pain described as intermitted contractions Objective Vitals Vital Signs Date Time Temp Pulse Resp B/P (MAP) Pulse Ox O2 Delivery O2 Flow Rate FiO2 08/02/17 11:26 98.6 91 16 136/73 (94) 96 08/02/17 07:12 97.9 94 16 111/59 (76) 93 08/02/17 03:55 98.5 98 17 106/70 (82) 95 08/02/17 00:50 14 08/01/17 23:26 98.2 96 16 125/64 (84) 95 08/01/17 19:17 98.5 86 17 119/65 (83) 93 08/01/17 16:17 98.8 95 18 114/69 (84) 94 08/01/17 15:53 92 08/02/17 08/02/17 08/03/17 15:00 23:00 07:00 Intake Total 1600 ml Balance 1600 ml IV Total 1600 ml Result Diagram: 08/02/17 0552 08/02/17 0552 Other Results Laboratory Tests Test 07/31/17 21:15 07/31/17 21:20 07/31/17 23:22 08/02/17 05:52 White Blood Count 13.0 TH/MM3 8.2 TH/MM3 Red Blood Count 5.77 MIL/MM3 4.45 MIL/MM3 Hemoglobin 11.9 GM/DL 9.3 GM/DL Hematocrit 36.9 % 28.0 % Mean Corpuscular Volume 64.0 FL 62.9 FL Mean Corpuscular Hemoglobin 20.6 PG 20.9 PG Mean Corpuscular Hemoglobin Concent 32.2 % 33.1 % Red Cell Distribution Width 27.3 % 26.6 % Platelet Count 234 TH/MM3 181 TH/MM3 Mean Platelet Volume 8.6 FL 8.6 FL Neutrophils (%) (Auto) 76.4 % 65.3 % Lymphocytes (%) (Auto) 17.4 % 27.1 % Monocytes (%) (Auto) 4.4 % 5.1 % Eosinophils (%) (Auto) 1.1 % 1.9 % Basophils (%) (Auto) 0.7 % 0.6 % Neutrophils # (Auto) 9.9 TH/MM3 5.4 TH/MM3 Lymphocytes # (Auto) 2.3 TH/MM3 2.2 TH/MM3 Monocytes # (Auto) 0.6 TH/MM3 0.4 TH/MM3 Eosinophils # (Auto) 0.1 TH/MM3 0.2 TH/MM3 Basophils # (Auto) 0.1 TH/MM3 0.0 TH/MM3 CBC Comment AUTO DIFF AUTO DIFF Differential Total Cells Counted 100 100 Neutrophils % (Manual) 78 % 69 % Lymphocytes % 19 % 23 % Monocytes % 2 % 2 % Eosinophils % 1 % 3 % Neutrophils # (Manual) 10.1 TH/MM3 5.9 TH/MM3 Nucleated Red Blood Cells 6 /100 WBC 3 /100 WBC Differential Comment FINAL DIFF MANUAL FINAL DIFF MANUAL Platelet Estimate NORMAL NORMAL Platelet Morphology Comment NORMAL NORMAL Polychromasia 2.7 % 3.2 % Target Cells 2+ 2+ Stomatocytes 1+ Blood Urea Nitrogen 24 MG/DL 18 MG/DL Creatinine 0.87 MG/DL 0.50 MG/DL Random Glucose 188 MG/DL 100 MG/DL Total Protein 9.1 GM/DL 7.2 GM/DL Albumin 4.4 GM/DL 3.5 GM/DL Calcium Level 9.6 MG/DL 8.5 MG/DL Alkaline Phosphatase 102 U/L 77 U/L Aspartate Amino Transf (AST/SGOT) 22 U/L 4 U/L Alanine Aminotransferase (ALT/SGPT) 15 U/L 10 U/L Total Bilirubin 1.0 MG/DL 0.9 MG/DL Sodium Level 138 MEQ/L 146 MEQ/L Potassium Level 4.3 MEQ/L 3.4 MEQ/L Chloride Level 107 MEQ/L 111 MEQ/L Carbon Dioxide Level 20.2 MEQ/L 24.3 MEQ/L Anion Gap 11 MEQ/L 11 MEQ/L Estimat Glomerular Filtration Rate 82 ML/MIN 155 ML/MIN Troponin I LESS THAN 0.02 NG/ML Lipase 263 U/L Lactic Acid Level 1.4 mmol/L Urine Color YELLOW Urine Turbidity CLEAR Urine pH 5.0 Urine Specific [place] 1.036 Urine Protein NEG mg/dL Urine Glucose (UA) >=500 mg/dL Urine Ketones TRACE mg/dL Urine Occult Blood NEG Urine Nitrite NEG Urine Bilirubin NEG Urine Urobilinogen LESS THAN 2 mg/dL Urine Leukocyte Esterase NEG Urine RBC 1 /hpf Urine WBC 1 /hpf Urine Squamous Epithelial Cells <1 /hpf Urine Granular Casts 1 /lpf Microscopic Urinalysis Comment CULT NOT INDICATED Band Neutrophils % 2 % Metamyelocytes 1 % Spherocytes 1+ Blood Smear Pathologist Review Iron Level 44 MCG/DL Total Iron Binding Capacity 360 MCG/DL Percent Iron Saturation 12.2 % Imaging Last Impressions Chest X-Ray 07/31/172106 Signed Impressions: CONCLUSION: 1. No acute cardiopulmonary disease. Abdomen/Pelvis CT 07/31/172106 Signed Impressions: CONCLUSION: 1. Inflammation of the anterior abdominal wall possibly related to surgery. Mi ld asymmetry in the loops of small bowel with some distended loops proximally a nd decompressed loops distally. No transition zone is identified. 2. Cholecystectomy clips Objective Remarks GENERAL: This is a obese 57 year old female, well-developed patient, uncomfortable but in no apparent distress. CARDIOVASCULAR: Regular rate and rhythm RESPIRATORY: Clear to auscultation. Breath sounds equal bilaterally. GASTROINTESTINAL: Abdomen soft, generalized tenderness, nondistended. Normal active bowel sounds MUSCULOSKELETAL: Extremities without clubbing, cyanosis, or edema. NEURO: Alert & Oriented x4 to person, place, time, situation. Moves all ext x4 A/P Problem List: (1) Abdominal pain ICD Codes: R10.9 - Abdominal pain Status: Acute Plan: Abdominal pain so for likely secondary to ileus versus partial small bowel obstruction related to adhesions Patient has also had abdominal surgery which includes hysterectomy, appendectomy , cholecystectomy and lysis of adhesions. Patient presented to the emergency department for evaluation of severe abdominal pain since 4 PM 07/31/17. Patient has history of chronic abdominal pain secondary to chronic adhesions from her multiple abdominal surgeries. Patient's has had nausea without vomiting and has had 3 bowel movements with flatus since onset of pain. Patient states it has been approximately 4 years since she has had pain this severe. CT abdomen pelvis reviewed and reveals inflammation of the anterior abdominal wall possibly related to surgery. Mild asymmetry in the loops of small bowel with some distended loops proximal tolerating well and decompressed loops distally. No transition point is identified. Cholecystectomy clips. 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 Long in 2008, but has since stopped following with him. Dr. Michel discussed the case with Dr. Pitts who reports patient had an abdominal surgery with Dr. Gomez last year. In review of outpatient records patient had extensive lysis of adhesions and ventral hernia repair laparoscopically 08/09/[address] 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 Long in 2008, but has since stopped following with him. iron studies reviewed and reveals: Iron 44, TIBC 360, % saturation 12.2 will start ferrous sulfate 325 mg once a day along with stool softener BID Patient will need to follow up with Dr. Long hematology after DC (3) Diabetes mellitus ICD Codes: E11.9 - Type 2 diabetes mellitus without complications Plan: Accu-Cheks before meals at bedtime with sliding scale insulin coverage (4) HTN (hypertension) ICD Codes: I10 - Essential (primary) hypertension Plan: resume patient's home amlodipine Vasotec as needed (5) Hyperlipidemia ICD Codes: E78.5 - Hyperlipidemia, unspecified Plan: Resume patient's home statin Assessment and Plan Patient examined. Assessment and plan formulated with Zulema Davis PA-C. I agree with the above. Zulema Davis Aug 02, 2017 11:40 Elias Michel DO Aug 03, 2017 12:48
[2017-08-02] MEDS ORDERED: FERROUS SULFATE 325 MG (65 MG ELEMENTAL IRON) TAB PO ONE (12:15)
[2017-08-02 15:13] VITALS: BP 126/76; PULSE 106; RESP 18; TEMP 98.5; O2SAT 100
[2017-08-02] MEDS: GEMFIBROZIL 600 MG TAB PO SCH (15:22)
--- NOTE | 2017-08-02 15:50 | RADRPT ---
EXAM DATE: 08/02/2017 2:50 PM EDT AGE/SEX: 57 years / Female INDICATIONS: Chronic abdominal pain. CLINICAL DATA: This is the patient's initial encounter. Patient reports that signs and symptoms have been present for 1 day and indicates a pain score of 5/10. MEDICAL/SURGICAL HISTORY: . Hypertension. Diabetes mellitus type II. Asthma. Inguinal hernia r epair. Cholecystectomy. Appendectomy. Hysterectomy. Scar tissue removal [place] [facility] [place]AST, 07/31/2017. . FLUORO TIME: 0 IMAGE COUNT: 13 CONTRAST: FINDINGS: Preliminary film shows clips in the right upper quadrant. There is increased density at the left pelv is which could be from calcifications or bowel mellissa.. The stomach is grossly unremarkable. Examination of the small bowel demonstrates normal mucosal pattern involving the jejunum and ileum. There is no evidence of mass or obstruction. No intraluminal filling defects are identified. Small bowel transit time is normal at minutes. CONCLUSION: No sign of obstruction. Electronically signed by: Juan Carlos Barahona MD 08/02/2017 3:48 PM EDT
[2017-08-02 19:59] VITALS: BP 132/72; PULSE 102; RESP 16; TEMP 98.4; O2SAT 98
[2017-08-03 03:07] VITALS: BP 121/72; PULSE 97; RESP 16; TEMP 98.2; O2SAT 98
[2017-08-03] MEDS: MORPHINE SULFATE 4 MG/ML INJ IV PRN (04:06)
[2017-08-03] MEDS: SODIUM CHLORIDE 0.9% FLUSH 10 ML FLUSH IV FLUSH PRN (04:06)
[2017-08-03] MEDS: GEMFIBROZIL 600 MG TAB PO SCH ×2 (06:25→16:47)
[2017-08-03 06:26] LABS: AUTOMATED NEUTROPHIL # 5.7 TH/MM3 (1.8-7.7); BASOPHIL % 0.5 % (0.0-2.0); EOSINOPHIL # 0.1 TH/MM3 (0-0.4); EOSINOPHIL % 1.5 % (0.0-4.0); HEMATOCRIT 26.2 % (35.0-46.0); HEMOGLOBIN 8.8 GM/DL (11.6-15.3); LYMPH % 25.4 % (9.0-44.0); LYMPHOCYTE # 2.2 TH/MM3 (1.0-4.8); MEAN CELL VOLUME 62.5 FL (80.0-100.0); MEAN CORPUSCULAR HGB CONC 33.7 % (32.0-36.0); MEAN PLATELET VOLUME 8.4 FL (7.0-11.0); MONO % 4.9 % (0.0-8.0); MONOCYTE # 0.4 TH/MM3 (0-0.9); NEUT % 67.7 % (16.0-70.0); PLATELET COUNT 182 TH/MM3 (150-450); RED BLOOD COUNT 4.19 MIL/MM3 (4.00-5.30); WHITE BLOOD COUNT 8.5 TH/MM3 (4.0-11.0)
[2017-08-03 06:51] LABS: BICARBONATE 22.9 MEQ/L (21.0-32.0); CALCIUM 8.6 MG/DL (8.5-10.1); CREATININE 0.52 MG/DL (0.50-1.00)
[2017-08-03 07:41] VITALS: BP 131/66; PULSE 91; RESP 18; TEMP 98.7; O2SAT 96
[2017-08-03] MEDS: INSULIN ASPART SUPPLEMENTAL SCALE SQ SCH ×4 (08:00→20:50)
[2017-08-03] MEDS: TIMOLOL MALEATE 0.5% OPHT SOLN 5 ML BTL EACH EYE SCH (08:26)
[2017-08-03] MEDS: amLODIPine BESYLATE 5 MG TAB PO SCH (08:26)
[2017-08-03] MEDS: SODIUM CHLORIDE 0.9% FLUSH 10 ML FLUSH IV FLUSH SCH ×2 (08:26→20:50)
[2017-08-03] MEDS: PANTOPRAZOLE SOD 20 MG DELAYED RELEASE TAB PO SCH (08:27)
[2017-08-03] MEDS: FERROUS SULFATE 325 MG (65 MG ELEMENTAL IRON) TAB PO SCH (08:27)
[2017-08-03 08:32] LABS: BANDS 1 % (0-6); CORRECTED NUCLEATED RBC 6 /100 WBC (0-0); MONOCYTES 2 % (0-8); NUCLEATED RED BLOOD CELL 6 (0-0); POLYS (SEG NEUTROPHILS) 83 % (16-70)
[2017-08-03 08:33] LABS: LYMPHOCYTES 13 % (9-44); METAMYELOCYTES 0 % (0-1); NEUTROPHIL # MANUAL DIFF 7.1 TH/MM3 (1.8-7.7)
[2017-08-03] MEDS: DOCUSATE SODIUM 50 MG/SENNA 8.6 MG TAB PO SCH ×2 (08:33→20:48)
[2017-08-03 08:35] LABS: TARGET CELLS 2+ (NORMAL)
[2017-08-03 08:36] LABS: SPHEROCYTES OCC (NORMAL)
[2017-08-03 08:37] LABS: POLYCHROMASIA 2.5 % (0.0-1.9)
[2017-08-03 11:58] VITALS: BP 132/67; PULSE 88; RESP 18; TEMP 98.5; O2SAT 100
[2017-08-03] MEDS: ACETAMINOPHEN/HYDROcodone 325 MG/7.5 MG TAB PO PRN ×2 (12:35→20:49)
--- NOTE | 2017-08-03 12:53 | HHI.PR ---
Subjective Remarks Pt had multiple bowel movements following her small bowel series. Pt c/o continued abdominal pain today worse from her baseline. pt has a h/o Hemoglobin CC. Objective Vitals Vital Signs Date Time Temp Pulse Resp B/P (MAP) Pulse Ox O2 Delivery O2 Flow Rate FiO2 08/03/17 11:58 98.5 88 18 132/67 (88) 100 08/03/17 07:41 98.7 91 18 131/66 (87) 96 08/03/17 04:11 15 08/03/17 03:07 98.2 97 16 121/72 (88) 98 08/02/17 19:59 98.4 102 16 132/72 (92) 98 08/02/17 15:13 98.5 106 18 126/76 (93) 100 08/03/17 08/03/17 08/04/17 15:00 23:00 07:00 Intake Total 250 ml Balance 250 ml Intake Oral 250 ml Result Diagram: 08/03/17 0555 08/03/17 0555 Imaging Last Impressions Abdomen X-Ray 08/02/17 0600 Signed Impressions: CONCLUSION: Splenomegaly. The bowel gas pattern is unremarkable. Small Bowel X-Ray 08/02/17 0000 Signed Impressions: CONCLUSION: No sign of obstruction. Chest X-Ray 07/31/172106 Signed Impressions: CONCLUSION: 1. No acute cardiopulmonary disease. Abdomen/Pelvis CT 07/31/172106 Signed Impressions: CONCLUSION: 1. Inflammation of the anterior abdominal wall possibly related to surgery. Mi ld asymmetry in the loops of small bowel with some distended loops proximally a nd decompressed loops distally. No transition zone is identified. 2. Cholecystectomy clips Objective Remarks GENERAL: This is a obese 57 year old female, well-developed patient, uncomfortable but in no apparent distress. CARDIOVASCULAR: Regular rate and rhythm RESPIRATORY: Clear to auscultation. Breath sounds equal bilaterally. GASTROINTESTINAL: Abdomen soft, generalized tenderness, nondistended. Normal active bowel sounds MUSCULOSKELETAL: Extremities without clubbing, cyanosis, or edema. NEURO: Alert & Oriented x4 to person, place, time, situation. Moves all ext x4 A/P Problem List: (1) Abdominal pain ICD Codes: R10.9 - Abdominal pain Status: Acute Plan: - 57 y/o F with h/o multiple previous abdominal surgeries and Hemoglobin CC admitted via the ER 07/31 with c/o Abdominal pain - h/o multiple abdominal surgery including hysterectomy, appendectomy, cholecystectomy and lysis of adhesions. - Patient presented to the emergency department for evaluation of severe abdominal pain since 4 PM 07/31/17. - Patient has history of chronic abdominal pain secondary to chronic adhesions from her multiple abdominal surgeries. - Patient's has had nausea without vomiting and has had 3 bowel movements with flatus since onset of pain. - Patient states it has been approximately 4 years since she has had pain this severe. - patient had an abdominal surgery with Dr. Gomez last year. In review of outpatient records, patient had extensive lysis of adhesions and ventral hernia repair laparoscopically 08/09/[address] 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 Long in 2008, but has since stopped following with him. - CT abdomen pelvis (07/31) reviewed and reveals inflammation of the anterior abdominal wall possibly related to surgery. Mild asymmetry in the loops of small bowel with some distended loops proximal tolerating well and decompressed loops distally. No transition point is identified. Cholecystectomy clips. - Small bowel series (08/03) --> NO obstruction - EGD (06/12/17) with Dr. Cintron - No acute findings. Pathology negative - Colonoscopy (06/12/17) with Dr. Cintron - Sigmoid diverticulosis. Pathology negative - advance diet to ADA diet - request GI consult with Dr. Cintron - anticipate d/c to home in next 1-2 days. 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 Long in 2008, but has since stopped following with him. iron studies reviewed and reveals: Iron 44, TIBC 360, % saturation 12.2 will start ferrous sulfate 325 mg once a day along with stool softener BID Patient will need to follow up with Dr. Long hematology after DC (3) Diabetes mellitus ICD Codes: E11.9 - Type 2 diabetes mellitus without complications Plan: Accu-Cheks before meals at bedtime with sliding scale insulin coverage (4) HTN (hypertension) ICD Codes: I10 - Essential (primary) hypertension Plan: resume patient's home amlodipine Vasotec as needed (5) Hyperlipidemia ICD Codes: E78.5 - Hyperlipidemia, unspecified Plan: Resume patient's home statin Elias Michel DO Aug 03, 2017 12:53
[2017-08-03] MEDS ORDERED: POTASSIUM CHLORIDE 20 MEQ CONTROLLED RELEASE TAB PO ONE (13:00)
--- NOTE | 2017-08-03 14:48 | PD.CONS ---
HPI History of Present Illness This is a 57 year old overweight female who was admitted to the hospital on 08/01 with severe abdominal pain day of admission. Patient states the pain is located across the lower mid abdomen and seems to be sharp onset off and on. She states that the pain is less intense today but still continues. Aggregating factors this past week was walking and climbing stairs. Patient states this type of activity has caused her abdominal pain and in the past. Patient has significant history of multiple abdominal surgeries including cholecystectomy, appendectomy, and hysterectomy, and 2 lysis of adhesion surgeries. She also notes nausea onset approximately 3 days ago but currently no vomiting. Patient notes she is passing gas small amounts and has been able to sit on the side of the bed and up in the chair briefly today. 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 She was then placed on Protonix which has been effective for dyspepsia. Currently patient denies any recent weight gain or weight loss, no headaches, no dysphasia. Or no obvious bleeding. She is awake and a good historian and answers questions appropriately. Her last lysis of adhesion surgery was August 09, 2016. She also has a significant history of IBS which involves some constipation related to iron supplements and loose stools since around 1988 when her gallbladder was removed. Patient has no family history of colon cancer. Initial CT scan performed 07/31/2017 showed some inflammation on the anterior abdominal wall possibly related to surgery. Asymmetric loops of small bowel with some distention approximately and decompressed loops distally. Abdominal x-rays and small bowel films are unremarkable with nonobstructive gas pattern. Gastroenterology was consulted for patient's persistent abdominal pain, known to Dr. Cintron. (Hortencia Al) [facility] Past Medical History History of adhesions Morbid obesity Chronic pain syndrome Gallbladder disease Hypertension Asthma Diabetes IBS Dyspepsia Past Surgical History Cholecystectomy Appendectomy Hysterectomy 2 surgical procedures for lysis of abdominal adhesions (Hortencia Al) Coded Allergies: No Known Allergies (Verified Allergy, Unknown, 08/01/17) Medications Administered Medications Medications (Trade) Dose Ordered Sig/Chris Route PRN Reason Start Time Stop Time Status Last Admin Dose Admin Sodium Chloride (NS Flush) 2 ml BID IV FLUSH 08/01/17 09:00 08/03/17 08:26 Acetaminophen/ Hydrocodone Bitart ([place] 7.5-325 Mg) 1 tab Q4H PRN PO PAIN SCALE 6 TO 10 08/01/17 00:30 08/03/17 12:35 Morphine Sulfate (Morphine Inj) 4 mg Q3H PRN IV Pain 6-10;if unable to take PO 08/01/17 00:45 08/03/17 04:06 Timolol Maleate (Timoptic 0.5% Opth Soln) 1 drop DAILY EACH EYE 08/02/17 09:00 08/03/17 08:26 Ferrous Sulfate (Ferrous Sulfate) 325 mg DAILY PO 08/03/17 09:00 08/03/17 08:27 Amlodipine Besylate (Norvasc) 5 mg DAILY PO 08/03/17 09:00 08/03/17 08:26 Gemfibrozil (Lopid) 600 mg BIDAC PO 08/02/17 16:00 08/03/17 06:25 Pantoprazole Sodium (Protonix) 20 mg DAILY PO 08/03/17 09:00 08/03/17 08:27 Family History No known colon cancer Social History No alcohol no tobacco no illicit drugs Patient is currently lives at home with her (Hortencia Al) Review of Systems Gastrointestinal: COMPLAINS OF: Abdominal pain, Constipation, Diarrhea, Nausea (Hortencia Al) GI Exam Vitals I&O Vital Signs Date Time Temp Pulse Resp B/P (MAP) Pulse Ox O2 Delivery O2 Flow Rate FiO2 08/03/17 11:58 98.5 88 18 132/67 (88) 100 08/03/17 07:41 98.7 91 18 131/66 (87) 96 08/03/17 04:11 15 08/03/17 03:07 98.2 97 16 121/72 (88) 98 08/02/17 19:59 98.4 102 16 132/72 (92) 98 08/02/17 15:13 98.5 106 18 126/76 (93) 100 I/O 08/02/17 08/02/17 08/02/17 08/03/17 08/03/17 08/03/17 07:00 15:00 23:00 07:00 15:00 23:00 Intake Total 1730 ml 250 ml Balance 1730 ml 250 ml Intake Oral 250 ml IV Total 1730 ml Imaging Last Impressions Abdomen X-Ray 08/02/17 0600 Signed Impressions: CONCLUSION: Splenomegaly. The bowel gas pattern is unremarkable. Small Bowel X-Ray 08/02/17 0000 Signed Impressions: CONCLUSION: No sign of obstruction. Chest X-Ray 07/31/172106 Signed Impressions: CONCLUSION: 1. No acute cardiopulmonary disease. Abdomen/Pelvis CT 07/31/172106 Signed Impressions: CONCLUSION: 1. Inflammation of the anterior abdominal wall possibly related to surgery. Mi ld asymmetry in the loops of small bowel with some distended loops proximally a nd decompressed loops distally. No transition zone is identified. 2. Cholecystectomy clips Laboratory Test 08/03/17 05:55 White Blood Count 8.5 TH/MM3 Red Blood Count 4.19 MIL/MM3 Hemoglobin 8.8 GM/DL Hematocrit 26.2 % Mean Corpuscular Volume 62.5 FL Mean Corpuscular Hemoglobin 21.0 PG Mean Corpuscular Hemoglobin Concent 33.7 % Red Cell Distribution Width 26.0 % Platelet Count 182 TH/MM3 Mean Platelet Volume 8.4 FL Neutrophils (%) (Auto) 67.7 % Lymphocytes (%) (Auto) 25.4 % Monocytes (%) (Auto) 4.9 % Eosinophils (%) (Auto) 1.5 % Basophils (%) (Auto) 0.5 % Neutrophils # (Auto) 5.7 TH/MM3 Lymphocytes # (Auto) 2.2 TH/MM3 Monocytes # (Auto) 0.4 TH/MM3 Eosinophils # (Auto) 0.1 TH/MM3 Basophils # (Auto) 0.0 TH/MM3 CBC Comment AUTO DIFF Differential Total Cells Counted 100 Neutrophils % (Manual) 83 % Band Neutrophils % 1 % Lymphocytes % 13 % Monocytes % 2 % Eosinophils % 1 % Neutrophils # (Manual) 7.1 TH/MM3 Metamyelocytes 0 % Nucleated Red Blood Cells 6 /100 WBC Differential Comment FINAL DIFF MANUAL Platelet Estimate NORMAL Platelet Morphology Comment NORMAL Polychromasia 2.5 % Spherocytes OCC Target Cells 2+ Blood Urea Nitrogen 15 MG/DL Creatinine 0.52 MG/DL Random Glucose 133 MG/DL Calcium Level 8.6 MG/DL Sodium Level 142 MEQ/L Potassium Level 3.1 MEQ/L Chloride Level 109 MEQ/L Carbon Dioxide Level 22.9 MEQ/L Anion Gap 10 MEQ/L Estimat Glomerular Filtration Rate 148 ML/MIN Magnesium Level 2.0 MG/DL Physical Examination HEENT: Obese normocephalic; atraumatic; no jaundice. Speech is clear NECK: Supple CHEST: Clear, even, unlabored CARDIAC: Regular rate and rhythm ABDOMEN: Round, obese, soft, mild nondistended, lower abdominal discomfort to light palpation; no hepatosplenomegaly; bowel sounds are present in all four quadrants. EXTREMITIES: No clubbing, cyanosis, or edema. SKIN: Normal; no rash;. 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 Onset approximately 2 days ago Nausea onset approximately 3 days ago Anemia chronic, patient sees Dr. Long and will follow as an outpatient. Current hemoglobin 8.8. Was 11.9 on admission but patient could have been dehydrated. History of IBS, notes constipation with iron supplements and loose stools since 1988 status post cholecystectomy History of adhesions she is status post 2 lysis of adhesion surgery last one performed on 08/09/2016. CT scan shows possible small bowel partial obstruction 57-year-old obese female who is a known patient to Dr. Cintron. Patient had EGD colonoscopy a few weeks ago and was then placed on Protonix. She is also had previous episodes of adhesions and abdominal pain which is exacerbated by walking or climbing stairs. Patient notes that she was walking and climbing and had some increased activity last week. Patient denies any recent weight gain or weight loss and no family history of colon cancer CAT scan of the abdomen and pelvis on 07/31/2017 showed inflammation of the anterior abdominal wall possibly related to surgery. Mild asymmetry in the loops of small bowel with some distention approximately and compressed distally abdominal x-rays on 621 show splenomegaly in the bowel gas pattern is unremarkable. Small bowel x-ray on 08/02/2017 shows no signs of obstruction. Patient has normal bilirubin and LFTs. Current hemoglobin 8.8 was 11.9 on admission but patient could have had some mild dehydration. No obvious bleeding. Patient's initial workup showed signs of partial small bowel obstruction. Mild gradual improvement noted today but patient is still having lower sharp abdominal pain which radiates out to both sides. Pain meds are effective. Plan Diet clear liquids for now patient still having some bouts of nausea but no vomiting. Conservative diet for now KUB in the a.m. PPI Bowel regimen daily Supportive care Monitor labs with special attention to hemoglobin and any obvious bleeding Call GI for any acute changes in her symptoms Patient was seen per myself and Dr. Cintron, this note was written on her behalf (Hortencia Al) Physician Comments seen, examined agree with above cta to r/o mesenteric ischemia trial of bentyl 10 mg po tid porphyrin levels (Ankita Cintron MD) Hortencia Al Aug 03, 2017 14:48 Ankita Cintron MD Aug 03, 2017 16:18
[2017-08-03] MEDS: DICYCLOMINE HCL 20 MG TAB PO SCH (16:47)
[2017-08-03 16:50] VITALS: BP 128/97; PULSE 97; RESP 18; TEMP 97.7; O2SAT 100
--- NOTE | 2017-08-03 18:10 | RADRPT ---
EXAM DATE: 08/03/2017 5:28 PM EDT AGE/SEX: 57 years / Female INDICATIONS: Diffuse abdominal pain. CLINICAL DATA: This is the patient's initial encounter. Patient reports that signs and symptoms have been present for 1 day and indicates a pain score of 5/10. MEDICAL/SURGICAL HISTORY: Cardiovascular disease. Hypertension. Appendectomy. Cholecystectomy. H ysterectomy. RADIATION DOSE: 7.51 CTDI (mGy) COMPARISON: No prior exams available for comparison. TECHNIQUE: Volumetric scanning was performed using a multi-row detector CT scanner during bolus infu jamee of 75 ml Omnipaque 350 (iohexol) nonionic water-soluble contrast as a single exam dose. . The data was post processed with a variety of visualization algorithms including full volume maximum inte nsity projection, multi-planar sliding thin slab reformation, curved planar reformation, and surface rendering techniques. Using automated exposure control and adjustment of the mA and/or kV according to patient size, radiation dose was kept as low as reasonably achievable to obtain optimal diagnostic quality images. DICOM format image data is available electronically for review and comparison. FINDINGS: Abdominal aorta: The distal thoracic aorta is unremarkable in appearance. The celiac and SMA origins are widely patent. There is a single renal artery on the right. Is widely patent. There is an accesso ry on the left. Both the main and the accessory are widely patent. The infrarenal aorta is normal in caliber. The [place] is patent. Pelvic circulation: The common iliac, internal iliac and external iliac circulation is widely patent throughout its course. CT source data: The solid organs of the abdomen are grossly intact by arterial phase imaging. No free intraperitoneal air free intraperitoneal fluid is identified. No findings to indicate a bowel obstru ction are evident. CONCLUSION: 1. Negative CT angiogram of the abdominal aorta and iliac circulation. 2. Electronically signed by: Soy Hall MD 08/03/2017 6:09 PM EDT
[2017-08-03 19:32] VITALS: BP 119/72; PULSE 99; RESP 18; TEMP 98.7; O2SAT 97
[2017-08-04 00:33] VITALS: BP 121/66; PULSE 85; RESP 16; TEMP 98.5; O2SAT 95
[2017-08-04 04:05] VITALS: BP 119/62; PULSE 85; RESP 16; TEMP 98.5; O2SAT 99
[2017-08-04] MEDS: GEMFIBROZIL 600 MG TAB PO SCH (06:48)
[2017-08-04 07:26] LABS: AUTOMATED NEUTROPHIL # 4.6 TH/MM3 (1.8-7.7); BASOPHIL % 0.5 % (0.0-2.0); EOSINOPHIL # 0.1 TH/MM3 (0-0.4); EOSINOPHIL % 1.5 % (0.0-4.0); HEMATOCRIT 25.9 % (35.0-46.0); HEMOGLOBIN 8.9 GM/DL (11.6-15.3); LYMPH % 27.1 % (9.0-44.0); LYMPHOCYTE # 1.9 TH/MM3 (1.0-4.8); MEAN CELL VOLUME 62.6 FL (80.0-100.0); MEAN CORPUSCULAR HEMOGLOBIN 21.4 PG (27.0-34.0); MEAN CORPUSCULAR HGB CONC 34.2 % (32.0-36.0); MEAN PLATELET VOLUME 9.1 FL (7.0-11.0); MONOCYTE # 0.4 TH/MM3 (0-0.9); NEUT % 65.9 % (16.0-70.0); PLATELET COUNT 192 TH/MM3 (150-450); RED BLOOD COUNT 4.14 MIL/MM3 (4.00-5.30); RED CELL DISTRIBUTION WIDTH 26.2 % (11.6-17.2)
[2017-08-04 07:36] LABS: BICARBONATE 23.9 MEQ/L (21.0-32.0); CALCIUM 8.9 MG/DL (8.5-10.1); CREATININE 0.6 MG/DL (0.50-1.00)
[2017-08-04] MEDS: INSULIN ASPART SUPPLEMENTAL SCALE SQ SCH ×2 (07:49→12:07)
[2017-08-04] MEDS: FERROUS SULFATE 325 MG (65 MG ELEMENTAL IRON) TAB PO SCH (07:55)
[2017-08-04] MEDS: DOCUSATE SODIUM 50 MG/SENNA 8.6 MG TAB PO SCH (07:56)
[2017-08-04] MEDS: amLODIPine BESYLATE 5 MG TAB PO SCH (07:56)
[2017-08-04] MEDS: PANTOPRAZOLE SOD 20 MG DELAYED RELEASE TAB PO SCH (07:56)
[2017-08-04] MEDS: DICYCLOMINE HCL 20 MG TAB PO SCH ×2 (07:56→12:07)
[2017-08-04] MEDS: TIMOLOL MALEATE 0.5% OPHT SOLN 5 ML BTL EACH EYE SCH (07:56)
[2017-08-04 08:00] VITALS: BP 132/70; PULSE 85; RESP 20; TEMP 97.1; O2SAT 97
--- NOTE | 2017-08-04 08:35 | RADRPT ---
EXAM DATE: 08/04/2017 8:24 AM EDT AGE/SEX: 57 years / Female INDICATIONS: Abdominal pain. Obstruction. CLINICAL DATA: This is the patient's subsequent encounter. Patient reports that signs and symptoms h ave been present for 4 - 6 days and indicates a pain score of 10/10. MEDICAL/SURGICAL HISTORY: . Hypertension. Diabetes mellitus type II. Asthma. . Cholecystectomy . Appendectomy. Hysterectomy. scar tissue removal COMPARISON: [facility] [place] KUB [place], 08/02/2017. . FINDINGS: The abdominal bowel gas pattern is normal. Residual contrast in the colon. Splenomegaly again seen. No abnormal masses. The osseous structures are unremarkable. Cholecystectomy clips. CONCLUSION: No evidence for obstruction Electronically signed by: Rodolfo Sims MD 08/04/2017 8:34 AM EDT
[2017-08-04] MEDS: SODIUM CHLORIDE 0.9% FLUSH 10 ML FLUSH IV FLUSH SCH (09:37)
--- NOTE | 2017-08-04 09:59 | HHI.GIFU ---
Subjective Remarks pt is siting up in bed eating breakfast, diet was just changed to regular diet. State the pain is better, no nausea or vomiting Objective Vitals I&O Vital Signs Date Time Temp Pulse Resp B/P (MAP) Pulse Ox O2 Delivery O2 Flow Rate FiO2 08/04/17 08:00 97.1 85 20 132/70 (90) 97 08/04/17 04:05 98.5 85 16 119/62 (81) 99 08/04/17 00:33 98.5 85 16 121/66 (84) 95 08/03/17 19:32 98.7 99 18 119/72 (88) 97 08/03/17 16:50 97.7 97 18 128/97 (107) 100 08/03/17 11:58 98.5 88 18 132/67 (88) 100 I/O 08/03/17 08/03/17 08/03/17 08/04/17 08/04/17 08/04/17 07:00 15:00 23:00 07:00 15:00 23:00 Intake Total 250 ml Balance 250 ml Intake Oral 250 ml # Voids 2 Laboratory Laboratory Tests Test 08/03/17 17:30 08/04/17 06:18 White Blood Count 7.0 Red Blood Count 4.14 Hemoglobin 8.9 Hematocrit 25.9 Mean Corpuscular Volume 62.6 Mean Corpuscular Hemoglobin 21.4 Mean Corpuscular Hemoglobin Concent 34.2 Red Cell Distribution Width 26.2 Platelet Count 192 Mean Platelet Volume 9.1 Neutrophils (%) (Auto) 65.9 Lymphocytes (%) (Auto) 27.1 Monocytes (%) (Auto) 5.0 Eosinophils (%) (Auto) 1.5 Basophils (%) (Auto) 0.5 Neutrophils # (Auto) 4.6 Lymphocytes # (Auto) 1.9 Monocytes # (Auto) 0.4 Eosinophils # (Auto) 0.1 Basophils # (Auto) 0.0 CBC Comment AUTO DIFF Blood Urea Nitrogen 14 Creatinine 0.60 Random Glucose 137 Calcium Level 8.9 Sodium Level 143 Potassium Level 3.4 Chloride Level 108 Carbon Dioxide Level 23.9 Anion Gap 11 Estimat Glomerular Filtration Rate 126 Imaging Last Impressions Abdomen X-Ray 08/04/17 0000 Signed Impressions: CONCLUSION: No evidence for obstruction Abdomen/Pelvis CT 08/03/17 0000 Signed Impressions: CONCLUSION: 1. Negative CT angiogram of the abdominal aorta and iliac circulation. 2. Small Bowel X-Ray 08/02/17 0000 Signed Impressions: CONCLUSION: No sign of obstruction. Chest X-Ray 07/31/17 2107 Signed Impressions: CONCLUSION: 1. No acute cardiopulmonary disease. Physical Exam HEENT: Pupils round and reactive to light; normocephalic; atraumatic; no jaundice. Throat is clear. CHEST: Chest is clear to auscultation and percussion. CARDIAC: Regular rate and rhythm with no murmur gallop or rubs. ABDOMEN: Soft, nondistended, mild abd tenderness; bowel sounds are present in all four quadrants. EXTREMITIES: No clubbing, cyanosis, or edema. SKIN: Normal; no rash; no jaundice. 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 Assessment and Plan Assessment: (1) Anemia ICD Codes: D64.9 - Anemia, unspecified (2) Small bowel obstruction, partial ICD Codes: K56.600 - Partial intestinal obstruction, unspecified as to cause Status: Acute (3) Abdominal pain ICD Codes: R10.9 - Abdominal pain Status: Acute Plan Uncontrolled abdominal pain, mid to lower sharp abdomen radiating out to both sides waxes and wanes. Onset approximately 2 days ago Nausea onset approximately 3 days ago Anemia chronic, patient sees Dr. Long and will follow as an outpatient. Current hemoglobin 8.8. Was 11.9 on admission but patient could have been dehydrated. History of IBS, notes constipation with iron supplements and loose stools since 1988 status post cholecystectomy History of adhesions she is status post 2 lysis of adhesion surgery last one performed on 08/09/2016. CT scan shows possible small bowel partial obstruction 57-year-old obese female who is a known patient to Dr. Cintron. Patient had EGD colonoscopy a few weeks ago and was then placed on Protonix. She is also had previous episodes of adhesions and abdominal pain which is exacerbated by walking or climbing stairs. Patient notes that she was walking and climbing and had some increased activity last week. Patient denies any recent weight gain or weight loss and no family history of colon cancer CAT scan of the abdomen and pelvis on 07/31/2017 showed inflammation of the anterior abdominal wall possibly related to surgery. Mild asymmetry in the loops of small bowel with some distention approximately and compressed distally abdominal x-rays on 621 show splenomegaly in the bowel gas pattern is unremarkable. Small bowel x-ray on 08/02/2017 shows no signs of obstruction. Patient has normal bilirubin and LFTs. Current hemoglobin 8.8 was 11.9 on admission but patient could have had some mild dehydration. No obvious bleeding. Patient's initial workup showed signs of partial small bowel obstruction. Mild gradual improvement noted today but patient is still having lower sharp abdominal pain which radiates out to both sides. Pain meds are effective. 08/04/17 Pain is better today, CTA negative, Abd X-ray negative for obstruction. Plan Regular diet PPI if pt does okay with food. ok to dc home from GI standpoint Supportive care Monitor labs with special attention to hemoglobin and any obvious bleeding Patient was seen per myself and Dr. Cintron, this note was written on her behalf Alfredo Florentino Aug 04, 2017 09:59
[2017-08-04 11:00] LABS: CORRECTED NUCLEATED RBC 3 /100 WBC (0-0); LYMPHOCYTES 31 % (9-44); MONOCYTES 5 % (0-8); NEUTROPHIL # MANUAL DIFF 4.4 TH/MM3 (1.8-7.7); NUCLEATED RED BLOOD CELL 3 (0-0); POLYS (SEG NEUTROPHILS) 63 % (16-70)
[2017-08-04 11:01] LABS: POLYCHROMASIA 3.4 % (0.0-1.9)
[2017-08-04 11:02] LABS: SPHEROCYTES 1+ (NORMAL); TARGET CELLS 1+ (NORMAL)
[2017-08-04] MEDS ORDERED: DICY20TA10 PO (11:53)
[2017-08-04 12:00] VITALS: BP 121/72; PULSE 90; RESP 20; TEMP 97.1; O2SAT 97
--- NOTE | 2017-08-04 12:18 | HHI.DCPOC ---
Discharge Care Plan Diagnosis: (1) Hemoglobin C-C disease (2) Abdominal pain (3) Anemia Goals to Promote Your Health * To prevent worsening of your condition and complications * To maintain your health at the optimal level Directions to Meet Your Goals Take your medications as prescribed Follow your dietary instruction Follow activity as directed Keep your appointments as scheduled Take your immunizations and boosters as scheduled If your symptoms worsen call your PCP, if no PCP go to Urgent Care Center or Emergency Room Smoking is Dangerous to Your Health. Avoid second hand smoke Call the 24-hour hour crisis hotline for domestic abuse at Zulema Davis Aug 04, 2017 12:18
[2017-08-04] MEDS ORDERED: FERR325T20 PO (12:20)
[2017-08-04] MEDS ORDERED: COLA100C5 PO (12:21)
--- NOTE | 2017-08-04 12:22 | HHI.DS ---
Discharge Summary Admission Date Aug 01, 2017 at 00:26 Discharge Date: Aug 04, 2017 Admitting Diagnosis recurrent intractable abdominal pain; early partial sbo (1) Abdominal pain Diagnosis: Principal ICD Codes: R10.9 - Abdominal pain Status: Acute (2) Anemia Diagnosis: Secondary ICD Codes: D64.9 - Anemia, unspecified (3) Diabetes mellitus Diagnosis: Secondary ICD Codes: E11.9 - Type 2 diabetes mellitus without complications (4) HTN (hypertension) Diagnosis: Secondary ICD Codes: I10 - Essential (primary) hypertension (5) Hyperlipidemia Diagnosis: Secondary ICD Codes: E78.5 - Hyperlipidemia, unspecified Consultants Dr. Cintron, GI Procedures None Brief History 57-year-old female patient with past medical history which includes diabetes, asthma, hypertension, hyperlipidemia, morbid obesity, chronic pain syndrome. Patient has also had abdominal surgery which includes hysterectomy, appendectomy , cholecystectomy and lysis of adhesions. Patient presented to the emergency department for evaluation of severe abdominal pain since 4 PM today. Patient has history of chronic abdominal pain secondary to chronic adhesions from her multiple abdominal surgeries. Patient's has had nausea without vomiting. Patient initially felt her pain was related to climbing stairs and she states due to her adhesions abdominal wall pain and chronic pain syndrome when she climbs stairs up with increased load on her abdominal wall she typically uses an elevator but today the elevator was broken. Patient did take her pain medication prior to arrival to the emergency department without pain relief. Patient states it has been approximately 4 years since she has had pain this severe. Patient denies flatus today. Patient denies dysuria, urinary frequency , urinary urgency, chest pain, shortness of breath and trauma or injury. CBC/BMP: 08/04/17 0618 08/04/17 0618 Significant Findings Laboratory Tests Test 08/02/17 05:52 08/03/17 05:55 08/03/17 17:30 08/04/17 06:18 Hemoglobin 9.3 GM/DL (11.6-15.3) 8.8 GM/DL (11.6-15.3) 8.9 GM/DL (11.6-15.3) Hematocrit 28.0 % (35.0-46.0) 26.2 % (35.0-46.0) 25.9 % (35.0-46.0) Mean Corpuscular Volume 62.9 FL (80.0-100.0) 62.5 FL (80.0-100.0) 62.6 FL (80.0-100.0) Mean Corpuscular Hemoglobin 20.9 PG (27.0-34.0) 21.0 PG (27.0-34.0) 21.4 PG (27.0-34.0) Red Cell Distribution Width 26.6 % (11.6-17.2) 26.0 % (11.6-17.2) 26.2 % (11.6-17.2) Nucleated Red Blood Cells 3 /100 WBC (0-0) 6 /100 WBC (0-0) 3 /100 WBC (0-0) Polychromasia 3.2 % (0.0-1.9) 2.5 % (0.0-1.9) 3.4 % (0.0-1.9) Spherocytes 1+ (NORMAL) OCC (NORMAL) 1+ (NORMAL) Target Cells 2+ (NORMAL) 2+ (NORMAL) 1+ (NORMAL) Aspartate Amino Transf (AST/SGOT) 4 U/L (15-37) Sodium Level 146 MEQ/L (136-145) Potassium Level 3.4 MEQ/L (3.5-5.1) 3.1 MEQ/L (3.5-5.1) 3.4 MEQ/L (3.5-5.1) Chloride Level 111 MEQ/L (98-107) 109 MEQ/L (98-107) 108 MEQ/L (98-107) Iron Level 44 MCG/DL (50-170) Percent Iron Saturation 12.2 % (20-50) Neutrophils % (Manual) 83 % (16-70) Random Glucose 133 MG/DL (74-106) 137 MG/DL (74-106) Total Creatine Kinase 19 U/L (26-192) Imaging Last Impressions Abdomen X-Ray 08/04/17 0000 Signed Impressions: CONCLUSION: No evidence for obstruction Abdomen/Pelvis CT 08/03/17 0000 Signed Impressions: CONCLUSION: 1. Negative CT angiogram of the abdominal aorta and iliac circulation. 2. Small Bowel X-Ray 08/02/17 0000 Signed Impressions: CONCLUSION: No sign of obstruction. Chest X-Ray 07/31/177 Signed Impressions: CONCLUSION: 1. No acute cardiopulmonary disease. PE at Discharge GENERAL: This is a obese 57 year old female, well-developed patient, uncomfortable but in no apparent distress. CARDIOVASCULAR: Regular rate and rhythm RESPIRATORY: Clear to auscultation. Breath sounds equal bilaterally. GASTROINTESTINAL: Abdomen soft, generalized tenderness, nondistended. Normal active bowel sounds MUSCULOSKELETAL: Extremities without clubbing, cyanosis, or edema. NEURO: Alert & Oriented x4 to person, place, time, situation. Moves all ext x4 Hospital Course Abdominal pain - 57 y/o F with h/o multiple previous abdominal surgeries and Hemoglobin CC admitted via the ER 07/31 with c/o Abdominal pain - h/o multiple abdominal surgery including hysterectomy, appendectomy, cholecystectomy and lysis of adhesions. - Patient presented to the emergency department for evaluation of severe abdominal pain since 4 PM 07/31/17. - Patient has history of chronic abdominal pain secondary to chronic adhesions from her multiple abdominal surgeries. - Patient's has had nausea without vomiting and has had 3 bowel movements with flatus since onset of pain. - Patient states it has been approximately 4 years since she has had pain this severe. - patient had an abdominal surgery with Dr. Gomez last year. In review of outpatient records, patient had extensive lysis of adhesions and ventral hernia repair laparoscopically 08/09/[address] 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 Long in 2008, but has since stopped following with him. - CT abdomen pelvis (07/31) reviewed and reveals inflammation of the anterior abdominal wall possibly related to surgery. Mild asymmetry in the loops of small bowel with some distended loops proximal tolerating well and decompressed loops distally. No transition point is identified. Cholecystectomy clips. - Small bowel series (08/03) --> NO obstruction - EGD (06/12/17) with Dr. Cintron - No acute findings. Pathology negative - Colonoscopy (06/12/17) with Dr. Cintron - Sigmoid diverticulosis. Pathology negative - advance diet to ADA diet - request GI consult with Dr. 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 Long in 2008, but has since stopped following with him. iron studies reviewed and reveals: Iron 44, TIBC 360, % saturation 12.2 will start ferrous sulfate 325 mg once a day along with stool softener BID Patient will need to follow up with Dr. Long hematology after DC Diabetes mellitus Accu-Cheks before meals at bedtime with sliding scale insulin coverage HTN (hypertension) resume patient's home amlodipine Vasotec as needed Hyperlipidemia Resume patient's home statin Pt Condition on Discharge: Stable Discharge Disposition: Discharge Home Discharge Instructions DIET: Follow Instructions for: As Tolerated, No Restrictions Activities you can perform: Regular-No Restrictions Follow up Referrals: Gastroenterology - 2 Weeks with Ankita Cintron MD Oncology/Hematology - [address] Long PCP Follow-up - [address] Leyva New Medications: Docusate Sodium (Colace) 100 Mg Capsule 100 MG PO BID for Prevent Constipation, #60 CAP 0 Refills Dicyclomine (Dicyclomine) 20 Mg Tab 20 MG PO TID for stomach cramps/pain for 14 Days, TAB 0 Refills Ferrous Sulfate (Ferosul) 325 Mg (65 Mg Iron) Tablet 325 MG PO DAILY for iron supplement for 30 Days, EACH 0 Refills Continued Medications: Amlodipine (Amlodipine) 5 Mg Tab 5 MG PO DAILY for Blood Pressure Management, #30 TAB 0 Refills Empagliflozin (Jardiance) 25 Mg Tab 25 MG PO DAILY for Blood Sugar Management, #30 TAB 0 Refills Gemfibrozil (Gemfibrozil) 600 Mg Tab 600 MG PO BIDAC, #60 TAB 0 Refills Take 30 minutes prior to breakfast and dinner. Insulin Degludec Inj (Tresiba Flextouch Pen Inj) 300 unit/3 ML Pen 1 UNITS SQ TID for Blood Sugar Management, #15 ML 0 Refills Pantoprazole (Pantoprazole) 20 Mg Tab 20 MG PO DAILY for Reflux, #30 TAB 0 Refills Sumatriptan (Sumatriptan) 25 Mg Tab 25 MG PO ONCE PRN for MIGRAINE HEADACHE, TAB 0 Refills If a satisfactory response has not been obtained at 2 hours, a second dose may be administered Timolol Opth Drops (Timolol Opth Drops) 0.5 % Soln 1 DROP EACH EYE DAILY for Glaucoma, #1 BOTTLE 0 Refills Tramadol (Tramadol) 50 Mg Tab 50 MG PO Q6H PRN for PAIN, TAB 0 Refills Additional Information Patient examined. Assessment and plan formulated with Zulema Davis PA-C. I agree with the above. Zulema Davis Aug 04, 2017 12:22 Elias Michel DO Aug 07, 2017 11:17
[2017-08-04] MEDS ORDERED: POTASSIUM CHLORIDE 25 MEQ EFFERVESCENT TAB PO ONE (12:30)
== END 2017-08-04 17:54 | disposition home or self-care (01) ==
LOC: NEPC 19:47 → NEDA 08-01 00:26 → NEPGCP 08-01 01:29
PROVIDERS: ADMIT Hospitalist; ATTEND Hospitalist
DX: R10.9 Unspecified abdominal pain (principal); D64.9 Anemia, unspecified; D58.2 Other hemoglobinopathies; K58.9 Irritable bowel syndrome, unspecified; K59.00 Constipation, unspecified; G89.4 Chronic pain syndrome; K66.0 Peritoneal adhesions (postprocedural) (postinfection); E11.9 Type 2 diabetes mellitus without complications; E78.5 Hyperlipidemia, unspecified; J45.909 Unspecified asthma, uncomplicated; I10 Essential (primary) hypertension; E78.00 Pure hypercholesterolemia, unspecified; Z90.710 Acquired absence of both cervix and uterus; E66.01 Morbid (severe) obesity due to excess calories; R16.1 Splenomegaly, not elsewhere classified; R11.0 Nausea; R94.31 Abnormal electrocardiogram [ECG] [EKG]
CPT/HCPCS: 71045; 74018; 74174; 74177; 74250; 80048; 80053; 81001; 82550; 82948; 83540; 83550; 83605; 83690; 83735; 84484; 85007; 85027; 93005; 96361; 96365; 96366; 96372; 96375; 96376; 99285; C9113; G0378; J1815; J2270; J2765; J3480; J7030; Q9963; Q9967; 84311